=== PATIENT | male | born 1995 | race Caucasian/White ===

== ENCOUNTER 2024-04-23 20:10 | Emergency (ER) | payer BC, SELFPAY ==
[2024-04-23 20:28] VITALS: BP 146/100; PULSE 77; RESP 14; TEMP 36.5; O2SAT 97; BMI 32.5
--- NOTE | 2024-04-23 21:42 | CRLHL7_ITS ---
For Patients: As a result of the Century Cures Act, medical imaging exams and procedure reports are released immediately into your electronic medical record. You may view this report before your referring provider. If you have questions, please contact your health care provider. Indication: Trauma. Technique: Right knee, 3 views. Comparison: None. Findings/Impression: Bones: Alignment is normal. No displaced fractures or bone lesions. Joint spaces: Trace joint effusion. Soft tissues: Focal soft tissue edema/laceration along the anterior knee. Dictated by Gian Sapp MD @ 04/23/2024 10:32:33 PM (Electronically Signed)
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
== END 2024-04-23 23:22 | disposition home or self-care (01) ==
PROVIDERS: Emergency Provider Emergency Medicine
DX: S81.011A Laceration without foreign body, right knee, initial encounter (principal); W25.XXXA Contact with sharp glass, initial encounter; V29.99XA Rider (driver) (passenger) of other motorcycle injured in unspecified traffic accident, initial encounter
CPT/HCPCS: 12002; 73562; 99283